=== PATIENT | female | born 1985 | race Caucasian/White ===

== ENCOUNTER 2016-11-25 12:53 | Outpatient (CLI) | payer OTHER | END 2016-11-25 12:54 | disposition home or self-care (01) | LOC: NC 12:53 | PROVIDERS: ATTEND Obstetrics & Gynecology | DX: O24.410 Gestational diabetes mellitus in pregnancy, diet controlled (principal); Z71.3 Dietary counseling and surveillance ==

== ENCOUNTER 2016-11-26 16:00 | Outpatient (CLI) | payer OTHER | END 2016-11-26 16:01 | disposition home or self-care (01) | LOC: NC 16:00 | PROVIDERS: ATTEND Family Medicine | DX: O24.410 Gestational diabetes mellitus in pregnancy, diet controlled (principal); Z71.3 Dietary counseling and surveillance ==

== ENCOUNTER 2016-12-03 11:54 | Outpatient (CLI) | payer OTHER | END 2016-12-03 11:55 | disposition home or self-care (01) | LOC: NC 11:54 | PROVIDERS: ATTEND Obstetrics & Gynecology | DX: O24.410 Gestational diabetes mellitus in pregnancy, diet controlled (principal); Z71.3 Dietary counseling and surveillance ==

== ENCOUNTER 2017-01-20 07:05 | Inpatient (IN) | payer OTHER ==
[2017-01-20] MEDS: INSULIN REGULAR HUMAN (DOSE) 100 UNITS/1 ML SUB-Q SCH ×3 (06:00→20:23)
[~2017-01-20 07:05] MED LIST: INSULIN REGULAR HUMAN (DOSE) 100 UNITS/1 ML SUB-Q SCH
[2017-01-20] MEDS ORDERED: OXYTOCIN 10 UNITS/ML VIAL ONE (07:50)
[2017-01-20] MEDS ORDERED: LACTATED RINGERS 1,000 ML ONE (07:50)
[2017-01-20] MEDS ORDERED: IV START KIT ONE (07:50)
[2017-01-20] MEDS ORDERED: MINERAL OIL 25 ML BOT ONE (07:51)
[2017-01-20] MEDS ORDERED: LIDOCAINE Viscous 2% 15 ML UDCUP ONE (07:51)
[2017-01-20] MEDS ORDERED: PUMP TUBING ONE (07:51)
[2017-01-20] MEDS ORDERED: LIDOCAINE 1% (PRES FREE) 30 ML VIAL ONE (07:51)
[2017-01-20] MEDS: MISOPROSTOL 25 MCG TABLET VG SCH ×4 (08:47→23:00)
[2017-01-20 08:48] LABS: HEMATOCRIT 33.8 % (37.0-47.0); HEMOGLOBIN 10.7 gm/l (12.0-16.0); MEAN CELL VOLUME 83.9 fl (81.0-99.0); MEAN CORPUSCULAR HEMOGLOBIN 26.6 pg (27.0-31.0); MEAN CORPUSCULAR HGB CONC 31.7 g/dl (33.0-37.0); RED CELL DISTRIBUTION WIDTH 17.4 % (11.5-14.5)
--- NOTE | 2017-01-20 08:49 | PDOC36 ---
Provider Note Note: ob note: ms nevarez was admitted at 38 weeks for cervical ripening,then induction of labor with a history of insulin controlled diabetes. plan for induction discussed including cytotec then pitocin. risks, reasons, complications discussed, including but not limited to uterine rupture, hyperstimulation, cesarian delivery, intolerance to labor reviewed. all questions addressed using simple terms. est weight 7-7 1/2 lbs.
[2017-01-20 09:03] LABS: ALB/GLOB RATIO 0.9 (>1.0); CALCIUM 8.8 mg/dL (8.6-10.3)
[2017-01-20 09:21] VITALS: BMI 31.6
[2017-01-20] MEDS ORDERED: OXYTOCIN IN NS 334 ML IV PRN (19:08)
[2017-01-20] MEDS ORDERED: LACTATED RINGERS 2,000 ML ONE (19:21)
[2017-01-20] MEDS ORDERED: LACTATED RINGERS 1,000 ML IV PRN (19:22)
[2017-01-20] MEDS ORDERED: FENTANYL/ROPIVACAINE EPIDURAL 0 ML EP ONE (23:40)
[2017-01-20] MEDS ORDERED: EPIDURAL PUMP SET ONE (23:40)
[2017-01-21] MEDS ORDERED: OXYCODONE/ACETAMINOPHEN 5/325 MG TABLET PO PRN (00:36)
[2017-01-21] MEDS ORDERED: BENZOCAINE/MENTHOL 60 APPLIC/BOT TP PRN (00:36)
[2017-01-21] MEDS ORDERED: LANOLIN 50 APPLIC/7G TUBE TP PRN (00:36)
[2017-01-21] MEDS ORDERED: LACTATED RINGERS 1,000 ML IV PRN (00:36)
[2017-01-21] MEDS ORDERED: SENNOSIDES 8.6 MG TABLET PO PRN (00:36)
--- NOTE | 2017-01-21 00:52 | PCMDEL ---
Delivery Note - Labor 1st stage (hr/min):: 1hr 48 min 2nd stage (hr/min):: 10 min 3rd stage (hr/min):: 8 min Total (hr/min):: 2hrs 6 min Pushed (hr/min):: 10 min - Delivery Delivery (Date): 01/21/17 Infant Gender: Male Presentation: Cephalic Position: OA Umbilical Cord: 3 Vessel Delayed Cord Clamping:: 2-3 min 1 Minute Total: 9 5 Minute Total: 10 Placenta:: intact, appeared to have an accessory lobe making it houseshoe shaped EBL:: 300cc Perineum:: intact Suture:: none Anesthesia/Meds:: none Length ROM:: membranes intact with delivery, 0 min Comments:: delivery note: i arrived with patient fully dilated +3 station, membranes intact. patient pushed effectively, spontaneous delivery of live baby boy with intact membranes, oa position, with easy delivery of head, shoulders and body. baby cried spontaneously and was placed skin to skin on mother's abdomen. delayed cord clamping performed, with father of baby cutting the cord. cord blood obtained. placenta delivered spontaneously and intact, appeared to have an accessory lobe and horseshoe shaped placenta. cervix intact, no vaginal or perineal lacerations noted. patient is requesting a post tubal ligation and has been scheduled for 01/22/17. post glucoses ordered. placent sent to pathology for evaluation. patient tolerated delivery well.
[2017-01-21] MEDS: IBUPROFEN 800 MG TABLET PO PRN ×4 (01:28→23:57)
--- NOTE | 2017-01-21 08:29 | HP ---
Adrienne Cisneros : 1985 HISTORY OF PRESENT ILLNESS: Adrienne Cisneros is a 31-year-old female who was admitted by Dr. Oconnor for induction of labor for cervical ripening with Cytotec and then possible Pitocin if needed for intrauterine of 38 weeks gestation and history of insulin dependent diabetes in . OB HISTORY: She is 3, para 1-0-1-1, one vaginal delivery in 2012 of a 6 pound 9 ounce female and one elective in 2000. [employer] ASSISTANT HISTORY: Menarche 12 x28 x5. Sexually transmitted diseases negative. PAST MEDICAL HISTORY: Positive for insulin dependent diabetes in this . SOCIAL HISTORY: Nonsmoker, nondrinker. FAMILY HISTORY: Negative. PAST SURGICAL HISTORY: Includes a laparoscopic cholecystectomy. REVIEW OF SYSTEMS: On admission was noncontributory. PHYSICAL EXAMINATION: GENERAL: Healthy female in no acute distress when admitted. HEENT: Normal. NECK: Supple. Thyroid not palpable. BREAST: Soft. No masses noted. HEART: Regular sinus rhythm, no murmurs. LUNGS: Clear. PELVIC: On admission she was 1 cm, 40%, -3 station and she was scheduled for Cytotec for cervical ripening. IMPRESSION: 1. Intrauterine 38 weeks gestation. 2. Insulin dependent diabetes. PLAN: Induction of labor with Cytotec. The patient is also requesting a tubal ligation for multiparity. JOB: [id number]
--- NOTE | 2017-01-21 10:03 | PDOC44 ---
- Subjective Day: 0 (offers no complaints) Reports Flatus, Reports Pain Tolerable, Reports , Reports Lochia Light, Reports Tolerating Clear Liquids, Reports Tolerating Regular Diet, Denies Nausea, Denies Vomiting, Denies Fever - Objective Temp Pulse Resp BP Pulse Ox 98.3 F 93 16 112/76 01/21/17 07:30 01/21/17 07:30 01/21/17 07:30 01/21/17 07:30 01/21/17 01/20/17 01/20/17 02:06 20:21 16:09 POC Capillary Glucose 124 H 123 H 121 H Current Medications Generic Name Dose Route Start Last Admin Trade Name Freq PRN Reason Stop Dose Admin Benzocaine/Menthol 1 applic 01/21/17 00:36 Dermoplast TP PRN PRN Patient Comfort Emollient Ointment 1 applic 01/21/17 00:36 Yst-Z-Ttkfee TP PRN PRN sore nipples Ibuprofen 800 mg 01/21/17 00:36 01/21/17 07:36 Motrin PO 800 mg Q8H PRN Administration Pain (Mild) Oxycodone/Acetaminophen 1 - 2 tab 01/21/17 00:36 Percocet 5/325 PO Q4H PRN Pain (Moderate) Senna 17.2 mg 01/21/17 00:36 Senokot PO BEDTIME PRN Comfort Sodium Chloride 10 ml 01/21/17 00:36 01/21/17 07:37 Normal Saline 10ml Flush IV 10 ml PRN PRN Administration IV Flush - Physical Exam General: Afebrile, No Acute Distress Psych/Mental Status: Mood/Affect Appropriate, Judgment/Insight Intact, Bonding Well Breast: Soft, Skin intact, Nipples Intact, No Tenderness, No Erythema, No Engorged Fundus: Firm, Midline, At Umbilicus, Other (nontender) Genitourinary: Other (voiding without difficulty) Lochia: Light Extremities: No Tenderness - Problems:Assessment/Plan (1) Gestational diabetes mellitus in , insulin controlled Status: Acute (2) 38 weeks gestation of Status: Acute Disposition: Stable (scheduled for post tubal ligation 01/22/17)
[2017-01-21] MEDS ORDERED: INSULIN REGULAR HUMAN (DOSE) 100 UNITS in SODIUM CHLORIDE 0.9% 99 ML IV PRN (11:31)
[2017-01-21] MEDS ORDERED: INSULIN REGULAR HUMAN (DOSE) 100 UNITS/1 ML SUB-Q PRN (11:40)
[2017-01-21] MEDS ORDERED: KETOROLAC TROMETHAMINE 30 MG/ML 1 ML VIAL IV PRN (22:57)
[2017-01-21] MEDS ORDERED: LACTATED RINGERS 1,000 ML IV SCH (23:00)
[2017-01-22 06:30] LABS: HEMATOCRIT 33.2 % (37.0-47.0); HEMOGLOBIN 10.2 gm/l (12.0-16.0)
[2017-01-22] MEDS ORDERED: SPINAL PROCEDURAL TRAY 1 EACH ONE (07:02)
[2017-01-22] MEDS ORDERED: LACTATED RINGERS 1,000 ML ONE (07:10)
[2017-01-22] MEDS ORDERED: MIDAZOLAM HCL 1 MG/ML 2ML VIAL ONE (07:33)
[2017-01-22] MEDS ORDERED: FENTANYL 100 MCG/2 ML VIAL ONE ×4 (07:33→08:53)
--- NOTE | 2017-01-22 07:44 | PDOC44 ---
- Subjective Day: 1 Doing well. No complaints. All questions answered about PPBTL. Patient still desires and understands permanence. Reports Flatus, Reports Pain Tolerable, Reports , Reports Lochia Moderate, Reports Tolerating Regular Diet - Objective Temp Pulse Resp BP Pulse Ox 97.8 F 75 16 94/50 01/22/17 01:54 01/22/17 01:54 01/22/17 01:54 01/22/17 01:54 Lab Results 01/22/17 05:30 Hgb 10.2 L Hct 33.2 L 01/21/17 01/21/17 01/21/17 21:35 14:58 10:05 POC Capillary Glucose 119 H 120 H 169 H Current Medications Generic Name Dose Route Start Last Admin Trade Name Freq PRN Reason Stop Dose Admin Benzocaine/Menthol 1 applic 01/21/17 00:36 Dermoplast TP PRN PRN Patient Comfort Emollient Ointment 1 applic 01/21/17 00:36 Jci-S-Swdzox TP PRN PRN sore nipples Lactated Ringer's 1,000 mls @ 125 mls/hr 01/21/17 23:00 01/22/17 07:33 Lactated Ringers IV 125 mls/hr .Q8H NIKOLE Administration Ibuprofen 800 mg 01/21/17 00:36 01/21/17 23:57 Motrin PO 800 mg Q8H PRN Administration Pain (Mild) Insulin Human Regular 0 units 01/21/17 11:40 Novolin R (Dose) SUB-Q 1100,1500,2000 PRN Protocol Ketorolac Tromethamine 30 mg 01/21/17 22:57 Toradol IV Q6H PRN Pain Oxycodone/Acetaminophen 1 - 2 tab 01/21/17 00:36 Percocet 5/325 PO Q4H PRN Pain (Moderate) Senna 17.2 mg 01/21/17 00:36 Senokot PO BEDTIME PRN Comfort Sodium Chloride 10 ml 01/21/17 00:36 01/22/17 05:57 Normal Saline 10ml Flush IV 10 ml PRN PRN Administration IV Flush - Physical Exam General: Afebrile Psych/Mental Status: Mood/Affect Appropriate, Judgment/Insight Intact, Bonding Well Neurological: Grossly Intact, Alert, Oriented x 4, Normal Gait, Normal Speech HEENT: Atraumatic, PERRLA, EOMI Lungs: Clear to Auscultation Bilaterally, Normal Air Movement Cardiovascular: Regular Rate and Rhythm, Normal S1, Normal S2 Fundus: Firm, Midline, At Umbilicus Abdomen: Normal Bowel Sounds Lochia: Moderate Rectal Exam: Deferred Extremities: Full ROM Skin: Normal Color, Warm, Dry, Intact - Problems:Assessment/Plan (1) 38 weeks gestation of Status: AcuteAssessment/Plan: Stable PPD#1 PPBTL today Anticipate D/C Home tomorrow. Disposition: Stable, Anticipate DC Home Tomorrow
[2017-01-22] MEDS ORDERED: ONDANSETRON 4 MG/2ML 2 ML VIAL ONE (08:09)
[2017-01-22] MEDS ORDERED: SUCCINYLCHOLINE CHL 20 MG/ML DOSE ONE (08:11)
[2017-01-22] MEDS ORDERED: PROPOFOL 20 ML IV ONE (08:11)
[2017-01-22] MEDS ORDERED: HYDROMORPHONE HCL 2 MG/ML SYRINGE ONE (08:35)
--- NOTE | 2017-01-22 09:25 | PCMBPN ---
Brief Post Op Note: Date of Procedure: 01/22/17 Start Time: [] Preoperative Diagnosis: 1. [desires permanent sterilization] Postoperative Diagnosis: 1. [Same] Procedure: [ BTL] Surgeon: Soo Spivey DO Assist:[Intraop consult with Dr. Bourgeois] Anesthesia: [failed spinal --> general] Findings: [ uterus, normal appearing fallopian tubes and ovaries.] Condition: [stable] Complications: [none] IV Fluids: [750] mLs of LR [] Urine Output: [] mLs Estimated Blood Loss: [10] mLs Tourniquet Time: [N/A] Specimens: [portion bilateral fallopian tubes] Implants: [] Drains: [N/A]
[2017-01-22] MEDS ORDERED: OXYCODONE/ACETAMINOPHEN 5/325 MG TABLET PO PRN (09:30)
[2017-01-22] MEDS ORDERED: LANOLIN 50 APPLIC/7G TUBE TP PRN (11:04)
[2017-01-22] MEDS ORDERED: BENZOCAINE/MENTHOL 60 APPLIC/BOT TP PRN (11:04)
[2017-01-22] MEDS ORDERED: ACETAMINOPHEN 325 MG TABLET PO PRN (11:16)
[2017-01-22] MEDS ORDERED: DOCUSATE SODIUM 100 MG CAPSULE PO PRN (11:17)
[2017-01-22] MEDS: KETOROLAC TROMETHAMINE 30 MG/ML 1 ML VIAL IV PRN ×2 (11:37→18:20)
--- NOTE | 2017-01-22 15:49 | OP ---
DOMINIK URRUTIA [id number] DATE OF : 1985 DATE OF PROCEDURE: 01/22/2017 PREOPERATIVE DIAGNOSIS: Desires permanent sterilization. POSTOPERATIVE DIAGNOSIS: Desires permanent sterilization. PROCEDURE: BILATERAL TUBAL LIGATION. SURGEON: Dr. Maria G Spivey CONSULTATIONS: Intraoperative consult with Dr. Bourgeois. Anesthesia failed spinal, which resulted in general anesthesia. FINDINGS: uterus. Normal appearing Fallopian tubes and ovaries. CONDITION: Stable. COMPLICATIONS: None. IV FLUIDS: 750 mL of lactated Ringer's. ESTIMATED BLOOD LOSS: 10 mL SPECIMENS: Portion of bilateral Fallopian tubes. IMPLANTS: None. DRAINS: None. PROCEDURE: The patient was taken back to the OR with IV fluids running where spinal anesthesia was attempted. The patient was prepped and draped in a normal sterile fashion and anesthesia was tested. Anesthesia was found to be inadequate and so general anesthesia was initiated. Once general anesthesia was successfully obtained, an approximately 4 cm infraumbilical incision was made. The incision was carried down to the fascia with Metzenbaum scissors. The fascia was identified and entered sharply. An Esteban retractor was placed. The bowels were packed out of the operative field and the left Fallopian tube was identified, grasped with a Abdoul clamp and followed out to its fimbriated end. The isthmic portion of the left Fallopian tube was then grasped and suture ligated with 2-0 plain. The isthmic portion of the Fallopian tube was then cut away with Metzenbaum scissors and hemostasis was achieved with the Bovie electrocautery device. The Fallopian tube was then returned to the patient's abdomen and many attempts were made to identify the patient's right Fallopian tube. The bowel was very anterior and made visualization of the right Fallopian tube difficult. An intraoperative consult was obtained with Dr. Bourgeois. The patient's right ovary was finally grasped with a [place] clamp and finally the right Fallopian tube was identified. It was grasped with another Abdoul clamp and followed-out to its fimbriated end. The isthmic portion of the Fallopian tube was grasped and was suture ligated times two with 2-0 plain. The isthmic portion of the Fallopian tube was cut away with Metzenbaum scissors and the cut ends were made hemostatic with the electrocautery device. There was a portion of the Fallopian tube that was bleeding, and that was again cauterized with electrocautery. Once hemostasis was achieved on the right Fallopian tube, it was returned to the abdominal cavity. The fascia was grasped with a Erna clamp and closed with 0-Vicryl suture in a continuous running fashion. The skin was closed with 4-0 Vicryl subcuticular and the procedure was then determined to be complete. The patient was easily roused from anesthesia and was transferred to recovery in stable condition.
[2017-01-22] MEDS: OXYCODONE/ACETAMINOPHEN 5/325 MG TABLET PO PRN ×2 (16:32→20:26)
[2017-01-22] MEDS ORDERED: INSULIN REGULAR HUMAN (DOSE) 100 UNITS/1 ML SUB-Q SCH ×2 (17:30→17:55)
[2017-01-23] MEDS: IBUPROFEN 600 MG TABLET PO PRN ×2 (00:05→08:03)
[2017-01-23] MEDS: OXYCODONE/ACETAMINOPHEN 5/325 MG TABLET PO PRN ×2 (02:38→08:06)
[2017-01-23 06:21] LABS: HEMATOCRIT 32.3 % (37.0-47.0); HEMOGLOBIN 9.9 gm/l (12.0-16.0)
[2017-01-23 07:58] VITALS: BP 100/54
[2017-01-23] MEDS ORDERED: PRENATAL VIT/FE FUMARATE/FA 1 TABLET PO SCH (09:00)
--- NOTE | 2017-01-23 09:53 | PDOC39B ---
Hospital Course: ADMIT DATE: 01/20/17 DISCHARGE DATE: 01/23/17 ADMISSION DIAGNOSES: intrauterine at 38 weeks, insulin dependent diabetes in , multiparity PROCEDURES: cervical ripening with cytotec, spontaneous vaginal delivery, post tubal ligation HISTORY OF PRESENT ILLNESS: 31 year old G3 T1 L1 at 38 weeks 1 days presenting with insulin dependent diabetes in , for cervical ripening and induction of labor. also requesting permanent sterilization. HOSPITAL COURSE: The patient had an uneventful post and post operative course with the exception of anemia. post glucoses were normal range. By day of discharge the patient is ambulating, eating, voiding, and passing flatus without difficulty. Pain is controlled and lochia is appropriate. She is [] - Physical Exam Vital Signs: Temp Pulse Resp BP Pulse Ox 98.7 F 83 16 100/54 97 01/23/17 07:52 01/23/17 07:52 01/23/17 07:52 01/23/17 07:52 01/22/17 11:25 General: Afebrile, No Acute Distress Psych/Mental Status: Mood/Affect Appropriate, Judgment/Insight Intact, Bonding Well Lungs: Clear to Auscultation Bilaterally, Normal Air Movement Breast: Soft, Skin intact, Nipples Intact, No Tenderness, No Erythema, No Engorged Fundus: Firm, Midline, At Umbilicus, Other (nontender) Abdomen: Normal Bowel Sounds, Other (flatus passed, no bowel movement yet), No Tenderness, No Distention Genitourinary: Normal Female Genitalia, Other (voiding without difficulty) Lochia: Moderate Extremities: No Tenderness Wound: Dressing in Place, Other (minimal dried blood on bandage, nontender) - Discharge Diagnosis (1) Gestational diabetes mellitus in , insulin controlled Status: Acute (2) 38 weeks gestation of Status: AcuteAssessment/Plan: Stable PPD#1 PPBTL today Anticipate D/C Home tomorrow. (3) Multiparity Status: Acute (4) Anemia, Status: Acute - Discharge Plan Condition: Stable Disposition: Home Additional Instructions: nothing in vagina x 6 weeks, post visit with dr roa or gama on , [address] visit with dr malloy. nothing in vagina x 6 weeks , take prescribed medications as written. Prescriptions: Ibuprofen [Motrin] 800 mg PO Q8H PRN #30 tablet PRN Reason: Pain FERROUS SULFATE (65 Fe) [IRON FERROUS SULFATE 325 MG TABLET (F)] 325 mg PO DAILY #30 tab Oxycodone HCl/Acetaminophen [PERCOCET 5/325 MG TABLET (F)] 1 - 2 tab PO Q4H PRN #14 tablet PRN Reason: Pain (Moderate)
--- NOTE | 2017-01-25 13:00 | SURGPATH ---
[facility] [address] [place] [id number] Patient Name: DOMINIK URRUTIA MR#: [id number] : 1985 Gender: F Specimen #: [id number] Collected: 01/22/2017 Received: 01/24/2017 Reported: 01/25/2017 Submitting Phys: GEE SPRINGER Copy To Phys: [facility] FERMÍN FUENTES LESLEY E Clinical History / Pre-Operative Diagnosis: DESIRES PERMANENT STERILIZATION Specimen Source / Surgical Procedure Performed: RIGHT AND LEFT FALLOPIAN TUBES (RIGHT WITH STITCH)- BILATERAL TUBAL LIGATION Interpretation: FALLOPIAN TUBES, RIGHT AND LEFT, BILATERAL TUBAL LIGATION: - NORMAL FALLOPIAN TUBES SEEN IN COMPLETE CROSS SECTION Electronically Signed Out Areli Macias M.D. Gross Description: The specimen is received in a formalin filled container labeled with the patient's name and "right and left fallopian tubes". Two cylindrical segments of adan tissue are 1.3 x 0.5 cm and 1.8 x 0.5 cm. The shorter segment has an attached suture and is inked black. A in store representative cross section of each is submitted in one cassette. Kenya Hong Microscopic Description: Both fallopian tubes are histologically unremarkable and seen in complete cross section. 1: [id number] Z30.2
--- NOTE | 2017-01-25 14:20 | SURGPATH ---
[facility] [address] [place] [id number] Patient Name: DOMINIK URRUTIA MR#: [id number] : 1985 Gender: F Specimen #: [id number] Collected: 01/21/2017 Received: 01/24/2017 Reported: 01/25/2017 Submitting Phys: FERMÍN FUENTES I [facility] NAQVI Clinical History / Pre-Operative Diagnosis: NONE PROVIDED Specimen Source / Surgical Procedure Performed: PLACENTA Interpretation: PLACENTA, DELIVERED (541 G): - THIRD TRIMESTER PLACENTA WITH PLACENTAL INFARCT (LESS THAN 5% OF TOTAL DISC VOLUME). - THREE-VESSEL UMBILICAL CORD. - NO EVIDENCE OF CHORIOAMNIONITIS OR FUNISITIS. Electronically Signed Out Justin Dior M.D., Ph.D. Gross Description: The specimen is received in a formalin filled container labeled with the patient's name and "placenta". A 20 8 x 1 cm, normally coiled, three vessel umbilical cord inserts 6.5 cm from the nearest edge of a 27 x 15 x 3 cm, 541 g discoid placenta. The surface and membranes are purple adan and glistening. The membranes insert normally. There is focal pale-adan subchorionic fibrin. The maternal surface is red-brown spongy without missing cotyledons. Sectioning through the disc reveals no nodule or induration. Gross summary: Irregularly-shaped montemayor placenta with focal subchorionic fibrin. Summary of sections: A-umbilical cord and membranes B-edge section including subchorionic fibrin C-full thickness section adjacent to umbilical cord insertion site Kenya Hong Microscopic Description: Multiple sections of the umbilical cord, placental membranes, and placental disc are microscopically examined. The umbilical cord has three vessels on cross-section. There is no evidence of acute inflammation. The placental membranes are histologically unremarkable. There is no evidence of acute inflammation or increased pigmentation. The placental disc is composed of mature, third trimester chorionic villi with subchorionic fibrin deposition and microcalcifications. A placental infarct involving less than 5% of the total disc volume is seen. 1: 46277 O43.813
== END 2017-01-23 12:11 | disposition home or self-care (01) | DRG 767 ==
LOC: FBC 07:05 → EDSTATUS 02-03 14:53
PROVIDERS: ADMIT Obstetrics & Gynecology; ATTEND Obstetrics & Gynecology
PROC: 3E0P7GC Introduction of Other Therapeutic Substance into Female Reproductive, Via Natural or Artificial Opening (ICD-10-PCS; 2017-01-20)
PROC: 10E0XZZ Delivery of Products of Conception, External Approach (ICD-10-PCS; principal; 2017-01-21)
PROC: 0UL73ZZ Occlusion of Bilateral Fallopian Tubes, Percutaneous Approach (ICD-10-PCS; 2017-01-22)
DX: O24.424 Gestational diabetes mellitus in childbirth, insulin controlled (principal); D62 Acute posthemorrhagic anemia; O90.81 Anemia of the puerperium; Z3A.38 38 weeks gestation of pregnancy; Z37.0 Single live birth; Z79.4 Long term (current) use of insulin; Z30.2 Encounter for sterilization; Z64.1 Problems related to multiparity

== ENCOUNTER 2017-01-27 14:05 | Outpatient (CLI) | payer OTHER | END 2017-01-27 14:58 | disposition home or self-care (01) | LOC: BABIESSH 14:05 | PROVIDERS: ATTEND Obstetrics & Gynecology | DX: Z39.1 Encounter for care and examination of lactating mother (principal) ==